=== PATIENT | male | born 1980 | race Caucasian/White ===

== ENCOUNTER 2019-04-04 14:03 | Outpatient (CLI) | payer OTHER ==
--- NOTE | 2019-04-04 16:45 | ULT ---
BILATERAL RENAL ULTRASOUND: Date: 04/04/19 HISTORY: Chronic renal disease. FINDINGS: Real-time imaging of the right and left kidneys performed. The right kidney measures 12.6 cm and left kidney measures 11.4 cm. There is some minimal prominence to the left extrarenal pelvis. An echogeni c area within the renal pelvis is seen. Reportedly, the patient has a left-sided nephrostomy tube. Th e bladder region appears unremarkable. There is no significant post-void residual. IMPRESSION: 1. Mild cortical thinning to both kidneys. 2. Slight prominence to the left renal pelvis with what appears to be partial visualization of a nep hrostomy tube or stent. POS: TPC
== END 2019-04-04 14:04 | disposition home or self-care (01) ==
LOC: ULT 14:03
PROVIDERS: ATTEND Internal Medicine Nephrology
DX: N18.3 Chronic kidney disease, stage 3 (moderate) (principal)
CPT/HCPCS: 36415; 76770; 80048

== ENCOUNTER 2019-04-07 02:43 | Inpatient (IN) | payer MEDICAID, OTHER ==
[2019-04-07] MEDS ORDERED: Morphine 4 MG/ML VIAL ONE (03:33)
[2019-04-07] MEDS ORDERED: Acetaminophen 325 MG TAB PO PRN (04:33)
[2019-04-07] MEDS ORDERED: Ondansetron ODT 4 MG TAB PO PRN (04:33)
[2019-04-07] MEDS ORDERED: Morphine 4 MG/ML VIAL SLOW IVP PRN (04:40)
--- NOTE | 2019-04-07 05:11 | PDOC.EVN ---
Event Note - Event Note Event Note: [id number] HP
[2019-04-07 05:34] LABS: #Basophils 0.1 thou/uL (0.0-0.2); #Eosinphils 0.5 thou/uL (0.0-0.7); #Lymphocytes 1.3 thou/uL (1.20-3.40); #Neutrophils 13.7 thou/uL (1.40-6.50); %Basophils 0.4 % (0.0-1.0); %Eosinophils 3.1 % (0.0-10.0); %Lymphocytes 7.4 % (21.0-51.0); %Monocytes 11.4 % (0.0-10.0); %Neutrophils 77.7 % (42.0-75.0); Mean Corpuscular HGB CONC 33.9 g/dL (32.0-36.0); Mean Corpuscular Hemoglobin 28.2 pg (27.0-31.0); Mean Corpuscular Volume 83.3 fL (78.0-98.0); Mean Platelet Volume 7.6 fL (7.4-10.4); Platelet Count 214 thou/uL (130-400); RBC Distribution Width 14.9 % (11.5-14.5); Red Blood Cell (RBC) Count 5.33 mill/uL (4.70-6.10); White Blood Cell (WBC) Count 17.6 thou/uL (4.8-10.8)
[2019-04-07 05:46] LABS: Anion Gap 12 mmol/L (10-20); BUN (Urea Nitrogen) 16 mg/dL (8.9-20.6); Calc. Creatinine Clearance 0 mL/min (70-130); Calcium 8.8 mg/dL (7.8-10.44); Carbon Dioxide 24 mmol/L (22-29); Chloride 104 mmol/L (98-107); Estimated GFR-MDRD 76; Glucose 112 mg/dL (70-105); Potassium 3.8 mmol/L (3.5-5.1); Sodium 136 mmol/L (136-145)
[2019-04-07] MEDS ORDERED: Cefepime 1 GM in Sodium Chloride 0.9% 100 ML IVPB SCH (06:00)
--- NOTE | 2019-04-07 06:33 | HP ---
CHIEF COMPLAINT: Left flank pain and fever. HISTORY OF PRESENT ILLNESS: Mr. Cooley is a 39-year-old male with past medical history of kidney stone, nephrostomy tube placed back in October 2018 in [place], is being transferred from an outside emergency room after he presented with left flank pain and fever. I requested to transfer the patient to [facility] for urology consultation. The patient had a fever of 101. He had left flank pain. Imaging studies showed that the nephrostomy tube is in place. ED consulted with Urology, was advised to admit the patient and start the patient on IV medical treatment and antibiotics. PAST MEDICAL HISTORY: Kidney stones. PAST SURGICAL HISTORY: 1. Nephrostomy tube. 2. Spine surgery. 3. Cholecystectomy. SOCIAL HISTORY: He smokes one pack a day. He drinks alcohol. Denies other drug use. FAMILY HISTORY: Reviewed and noncontributory. ALLERGIES: LISTED IN THE CHART. HOME MEDICATIONS: Please see home medication reconciliation form for updated medications. REVIEW OF SYSTEMS: Review of 14 systems negative except what is mentioned in the history of present illness. PHYSICAL EXAMINATION: VITAL SIGNS: Temperature 101, heart rate 110, respiratory rate is 14, blood pressure is 140/80. HEAD AND NECK: Normocephalic, atraumatic. NECK: Supple. No JVD. CHEST: Fair bilateral air entry. HEART: S1, S2, regular, tachycardic. ABDOMEN: Soft with left flank tenderness. Bowel sounds present. NEUROLOGIC: Awake, alert, oriented x3. PSYCHIATRIC: Normal mood. EXTREMITIES: No clubbing or cyanosis. LABORATORY DATA: Labs ordered. The results are pending at the time of dictation. IMAGING STUDIES: Imaging studies were done, it was reported that the nephrostomy tube is in place. ASSESSMENT AND PLAN: 1. Sepsis. 2. Kidney stone/infection. 3. Left flank pain. PLAN: 1. Admit. 2. Septic workup including cultures and urine cultures. 3. IV antibiotic. 4. Urology was consulted by the ED for evaluation and further management. 5. Pain management. 6. Reconcile home medications. 7. DVT prophylaxis, early ambulation. 8. Expected length of stay is 2 midnights or more. Job ID: [id number]
[2019-04-07] MEDS: HYDROcodone/Acetaminophen 10/325 mg Tablet PO PRN ×2 (09:25→20:47)
[2019-04-07] MEDS: Sodium Chloride 0.9% 1,000 ML IV SCH ×3 (09:30→20:33)
[2019-04-07 09:44] LABS: Bacteria/HPF None Seen HPF (None Seen); Bilirubin Negative (Negative); Blood, Urine Negative (Negative); Clarity Clear (Clear); Glucose, Urine (Dipstick) Normal (Negative); Leukocyte 75 Leu/uL (Negative); Nitrite Negative (Negative); Protein, Urine (Dipstick) Negative (Neg-Trace); RBC/HPF 0-3 HPF (0-3); Squamous Epithelial 0-3 HPF (0-3); Urobilinogen Normal mg/dL (Less than 2)
[2019-04-07 09:47] VITALS: BMI 28.1
[2019-04-07] MEDS ORDERED: FLU VACC QS2019-20(6MOS UP)/PF 60 MCG/0.5 ML SYRINGE IM ONE (10:00)
[2019-04-07] MEDS: Cefepime 1 GM in Sodium Chloride 0.9% 100 ML IVPB SCH ×2 (10:31→17:16)
[2019-04-07] MEDS ORDERED: Varenicline Tartrate 0.5 MG TAB PO SCH (11:15)
--- NOTE | 2019-04-07 11:51 | PRG ---
DATE OF SERVICE: 04/07/2019 SUBJECTIVE: The patient is seen and examined at bedside. He complains about the flank pain, which is rated approximately at 4 on a scale from 1 to 10. He does not have much nausea. No vomiting. OBJECTIVE: VITAL SIGNS: Blood pressure is 127/78, pulse is 115, temperature is 100, maximal temperature is 100, respiratory rate is 18 and pulse oximetry 94% on room air. HEENT: Head, atraumatic and normocephalic. Eyes, PERRLA, sclerae are nonicteric. Oral mucosa is moist. NECK: Supple. LUNGS: Clear. HEART: S1, S2. Tachycardic. No S3. No S4. ABDOMEN: Soft. The left flank and left lumbar area are tender to touch. There is a urostomy tube in place. Bowel sounds are present. EXTREMITIES: No clubbing, cyanosis, or edema. NEUROLOGIC: He is alert and oriented x4. There is no any motor deficits. IMPRESSION: 1. Sepsis. 2. Kidney stone/infection. PLAN: Continue cefepime. Obtain CT of the abdomen and pelvis with and without contrast. Urologist is consulted. Continue pain management with opioids and continue IV fluids. Job ID: [id number]
--- NOTE | 2019-04-07 16:39 | RAD ---
Exam: Abdomen one view: COMPARISON: No recent comparisons. HISTORY: Left-sided percutaneous nephrostomy catheter. Approximately 0.9 x 1.2 cm diameter left ureteral calcu beltran overlying the left L4 transverse process region. IMPRESSION: Left percutaneous nephrostomy catheter. Large left ureteral calculus.
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
[2019-04-07] MEDS: Varenicline Tartrate 0.5 MG TAB PO SCH (20:33)
[2019-04-08] MEDS: Cefepime 1 GM in Sodium Chloride 0.9% 100 ML IVPB SCH ×4 (00:14→23:40)
[2019-04-08 05:40] LABS: Anion Gap 11 mmol/L (10-20); BUN (Urea Nitrogen) 12 mg/dL (8.9-20.6); Calc. Creatinine Clearance 169 mL/min (70-130); Calcium 9.2 mg/dL (7.8-10.44); Carbon Dioxide 24 mmol/L (22-29); Chloride 106 mmol/L (98-107); Estimated GFR-MDRD 88; Glucose 97 mg/dL (70-105); Potassium 3.9 mmol/L (3.5-5.1); Sodium 137 mmol/L (136-145)
[2019-04-08 05:54] LABS: Band 2 % (5-11); Eosinophils 9 % (0-10); Hemoglobin 14.6 g/dL (14.0-18.0); Lymphocytes 19 % (21-51); MDiff Complete? YES; Mean Corpuscular HGB CONC 34.5 g/dL (32.0-36.0); Mean Corpuscular Hemoglobin 28.2 pg (27.0-31.0); Mean Corpuscular Volume 81.6 fL (78.0-98.0); Mean Platelet Volume 7.7 fL (7.4-10.4); Monocytes 13 % (0-10); Neutrophil 57 % (42-75); Platelet Count 202 thou/uL (130-400); RBC Distribution Width 14.5 % (11.5-14.5); Red Blood Cell (RBC) Count 5.19 mill/uL (4.70-6.10); White Blood Cell (WBC) Count 12.9 thou/uL (4.8-10.8)
[2019-04-08] MEDS: Sodium Chloride 0.9% 1,000 ML IV SCH (07:02)
[2019-04-08] MEDS: Varenicline Tartrate 0.5 MG TAB PO SCH ×2 (09:21→20:18)
--- NOTE | 2019-04-08 11:17 | PRG ---
DATE OF SERVICE: 04/08/2019 SUBJECTIVE: The patient is seen and examined at the bedside. His pain is under better control. He rates it at 1 or 2 on a scale of 1 to 10. He is tolerating food. OBJECTIVE: VITAL SIGNS: Blood pressure is 124/71, pulse is 102, temperature is 98.8, maximal temperature is 100, respiratory rate is 20, and O2 saturation is 95% on room air. HEENT: His head is atraumatic, normocephalic. Eyes are PERRLA. Sclerae are nonicteric. Oral mucosa is moist. NECK: Supple. LUNGS: Clear. HEART: S1 and S2. Tachycardic. No S3. No S4. ABDOMEN: Soft, nontender, and nondistended. Left flank area shows nephrostomy tube in place, which is less sensitive than what it was yesterday. NEUROLOGICAL: He is alert and oriented x4. There is no any motor or sensory deficits. LABORATORY DATA: Labs showed white count of 12.9, hemoglobin 14.6, hematocrit 42.4, and platelet count is 202,000. Normal chemistry. Microbiology, nothing is posted. IMAGING DATA: X-ray of the abdomen done yesterday showed left percutaneous nephrostomy catheter and large left ureteral calculus, which is measured at 0.9 x 1.2 cm at the level of left L4 transverse process region. IMPRESSION: 1. Sepsis. 2. Left ureteral stone. 3. Indwelling percutaneous nephrostomy tube and left flank pain, status post nephrostomy tube valve obstruction, status post removal of the obstruction. 4. Urinary tract infection. I do not see that the urine culture was done. DISCUSSION: The patient was seen by Dr. Sky for Urology evaluation. His nephrostomy tube valve was obstructed and apparently, it was unplugged by urologist. The patient's pain is under control. We will have a behavioral health case manager to work on his insurance to have appropriate after discharge Followup with this patient, who wants to establish care with local urologist. For now, we will continue IV antibiotic, which is cefepime. I do not see cultures on his urine. Blood cultures done at the time of admission. We will have to treat him empirically in situation like that. We will stop his IV fluids. He is taking fluids orally without any problems. Job ID: [id number]
[2019-04-09] MEDS: Varenicline Tartrate 0.5 MG TAB PO SCH (08:42)
[2019-04-09] MEDS: Cefepime 1 GM in Sodium Chloride 0.9% 100 ML IVPB SCH ×2 (09:26→15:30)
--- NOTE | 2019-04-09 13:07 | PDOC.HOSPP ---
- Subjective Encounter Date: 04/09/19 Encounter Time: 10:15 Subjective: no pain, feels better - Objective Vital Signs & Weight: Vital Signs (12 hours) Temp Pulse Resp BP BP Pulse Ox 04/09/19 12:07 98.5 F 88 16 116/73 96 04/09/19 12:00 98.5 F 88 16 116/73 96 04/09/19 07:58 98.6 F 86 16 133/76 95 04/09/19 03:41 98.3 F 81 16 112/70 94 L Weight Weight 250 lb I&O: 04/08/19 04/09/19 04/10/19 06:59 06:59 06:59 Intake Total 3320 2700 Output Total 6910 2675 850 Balance -3590 25 -850 Result Diagrams: 04/08/19 04:14 04/08/19 04:14 Hospitalist ROS - Medication Medications: Active Medications Generic Name Dose Route Start Last Admin Trade Name Freq PRN Reason Stop Dose Admin Hydrocodone Bitart/Acetaminophen 1 tab 04/07/19 04:33 04/07/19 20:47 [place] 10/325 PO 1 tab Q4H PRN Administration Moderate Pain (4-6) Cefepime HCl 1 gm/ Sodium 100 mls @ 200 mls/hr 04/07/19 08:00 04/09/19 09:26 Chloride IVPB 100 mls 0800,1600,2359 ZAMZAM Administration Sodium Chloride 10 ml 04/07/19 09:00 04/09/19 09:26 Flush - Normal Saline IVF 10 ml Q12HR ZAMZAM Administration Sodium Chloride 10 ml 04/07/19 08:01 04/08/19 15:50 Flush - Normal Saline IVF 10 ml PRN PRN Administration Saline Flush Varenicline 0.5 mg 04/07/19 21:00 04/09/19 08:42 Chantix PO 0.5 mg BID ZAMZAM Administration - Exam General Appearance: NAD, awake alert Eye: PERRL, anicteric sclera ENT: no oropharyngeal lesions, moist mucosa Neck: supple, no JVD Heart: RRR, no murmur Respiratory: no wheezes, no rales Gastrointestinal: soft, non-tender, non-distended, normal bowel sounds Gastrointestinal - other findings: percut nephrostomy tube draining urine left side Extremities: no cyanosis, no edema Neurological: cranial nerve grossly intact, no focal deficits Psychiatric: normal affect, A&O x 3 Hosp A/P (1) Ureteral calculus Code(s): N20.1 - CALCULUS OF URETER Status: Acute (2) h/o percutaneous nephrostomy tube left Status: Chronic Plan: got it placed in October at [facility] in [place] (3) Tobacco abuse Code(s): Z72.0 - TOBACCO USE Status: Chronic - Plan on cefepime, morphine prn, chantix for smoking cessation hemostable awaiting insurance approval for further procedures on left ureteral calculi ( 1.2cms) at L4 level
[2019-04-09 15:28] VITALS: BP 146/70; TEMP 98.1
--- NOTE | 2019-04-10 10:13 | PQF ---
[employer] Surgery Teacher Crystal Reports Winform ViewerATRIUM HEALTH HUNTERSVILLESHAUNNA GARCIA GENE DENG MD [id number] [facility] 3317 [id number] CLINICAL DOCUMENTATION CLARIFICATION FORM: POST DISCHARGE Addendum to original discharge summary date: ____ Late entry note date: __ DATE: 04/10/2019 ATTN:GENE DENG MD Please exercise your independent, professional judgment in responding to the clarification form. Clinical indicators are provided on the bottom of this form for your review Please check appropriate box(s): [ x ] Sepsis due to Nephrostomy tube [ ] Sepsis not due to Nephrostomy tube [ x ] Other diagnosis klebsiella bacteremia 2/2 blood cultures drawn on 2018 at [facility]. [ ] Unable to determine CLINICAL INDICATORS - SIGNS / SYMPTOMS / LABS - He had a nephrostomy tube- ED record, 04/07, Raj Rhoades MD - Sepsis- H&P, 04/07, Elie Delgadillo MD - Kidney stone/infection-H&P, 04/07, Elie Delgadillo MD - Ureteral calculus-Hospital PN, 04/09, GENE DENG MD RISK FACTORS - PSH: left percutaneous nephrostomy tube-Consult, 04/07, Jose Daniel Zuniga MD - UTI-Consult report, 04/07, Jose Daniel Zuniga MD TREATMENT: -Cefepime.IV- MAR, 04/07 (This form is maintained as a part of the permanent medical record) 2014 [email or web address]. All Rights Reserved Pat Santillan [not provided] [not provided] MTDD
--- NOTE | 2019-04-10 14:30 | DIS ---
DATE OF ADMISSION: 04/07/2019 DATE OF DISCHARGE: 04/09/2019 DISCHARGE DISPOSITION: To home. PRIMARY DISCHARGE DIAGNOSES: Left ureteral stent with history of percutaneous nephrostomy tube placed in October of 2018 at [facility], tobacco abuse, and sepsis due to Klebsiella pneumonia. PROCEDURES DONE DURING HOSPITALIZATION: Plain abdominal x-ray done showed 0.9 x 1.2 cm left ureteral calculus overlying the left L4 transverse process. Blood cultures x2 obtained on 04/06/2019 grew Klebsiella pneumoniae species sensitive to all antibiotics. Had a white count of 17 on the day of admission. BUN 12 and creatinine 0.9. INPATIENT CONSULT: Dr. Jose Daniel Zuniga for Urology. DISCHARGE MEDICATIONS: 1. Ciprofloxacin 500 mg p.o. twice daily for a total of 7 days. 2. Chantix as before 0.5 mg twice daily. ALLERGIES: TO QUETIAPINE. DISCHARGE PLAN: The patient is advised to follow up with a new primary care physician in the area, who accepts his insurance in 1 week. He also needs to either followup at [facility], where his insurance is accepted and see a urologist, whom he saw in October of this year with placement of nephrostomy tube or local urologist in the area will accept his insurance. BRIEF COURSE DURING HOSPITALIZATION: The patient initially came in with complaints of left flank pain and fever. He has had history of left ureterolithiasis and had a nephrostomy tube placed in October of 2018 at [facility]. The patient did not follow up for further workup on the stone. He had decreased urine output from his left nephrostomy tube. The patient also had blood culture that was taken on the that grew Klebsiella pneumoniae, 2/2 sets. He was evaluated by Dr. Jose Daniel Zuniga for Urology here. His nephrostomy tube existing valve was flushed. The patient has had good urine output from the nephrostomy tube and it is working well now. Case Management consultation was obtained to see if his insurance would allow for further urologic procedures as outpatient. Apparently, his insurance would not allow Dr. Jose Daniel Cruz to do further procedures including lithotripsy/extraction of stone. In view of this, he was counseled and advised to follow up with his urologist at [facility], where he had a nephrostomy tube placed. He has a 1 cm stone, which likely is not going to pass. He has had this for last 6 months or so now. Local area urologist's name and phone numbers were provided to him to find out if his insurance is acceptable to them to have further workup on his stone. He has remained otherwise hemodynamically stable. He is placed on ciprofloxacin based on cultures. Please add bacteremia with Klebsiella and the patient has remained hemodynamically stable with normal temperatures from 14. He has had initial temperature of 100 on arrival here. Please note, I have seen and examined the patient on the day of discharge. Job ID: [id number]
== END 2019-04-09 16:24 | disposition home or self-care (01) | DRG 698 ==
LOC: ERS 02:43 → OBSVTOIN 04:25 → SJJU 04:25
PROVIDERS: ADMIT Internal Medicine; ATTEND Internal Medicine
PROC: 0T25X0Z Change Drainage Device in Kidney, External Approach (ICD-10-PCS; principal; 2019-04-07)
DX: N99.521 Infection of incontinent external stoma of urinary tract (principal); A41.89 Other specified sepsis; N20.1 Calculus of ureter; N39.0 Urinary tract infection, site not specified; F32.9 Major depressive disorder, single episode, unspecified; Y83.8 Other surgical procedures as the cause of abnormal reaction of the patient, or of later complication, without mention of misadventure at the time of the procedure; B96.1 Klebsiella pneumoniae [K. pneumoniae] as the cause of diseases classified elsewhere; F17.210 Nicotine dependence, cigarettes, uncomplicated; Z90.49 Acquired absence of other specified parts of digestive tract
CPT/HCPCS: 36415; 74018; 80048; 81001; 85025; 90471; 90686; 90732; 96361; 96374; G0008; G0009; J0692; J2270; J3490

== ENCOUNTER 2019-05-16 13:50 | Outpatient (CLI) | payer MEDICAID ==
[2019-05-16 15:15] LABS: Hemoglobin 15.2 g/dL (14.0-18.0); Mean Corpuscular HGB CONC 33.6 g/dL (32.0-36.0); Mean Corpuscular Hemoglobin 27.6 pg (27.0-31.0); Mean Corpuscular Volume 82.2 fL (78.0-98.0); Mean Platelet Volume 6.9 fL (7.4-10.4); Platelet Count 280 thou/uL (130-400); Red Blood Cell (RBC) Count 5.51 mill/uL (4.70-6.10); White Blood Cell (WBC) Count 16.6 thou/uL (4.8-10.8)
[2019-05-16 15:22] LABS: Bacteria/HPF None Seen HPF (None Seen); Bilirubin Negative (Negative); Blood, Urine Negative (Negative); Clarity Clear (Clear); Glucose, Urine (Dipstick) Normal (Negative); Leukocyte 25 Leu/uL (Negative); Nitrite Negative (Negative); Protein, Urine (Dipstick) 10 mg/dL (Neg-Trace); RBC/HPF 0-3 HPF (0-3); Squamous Epithelial None Seen HPF (0-3); Urobilinogen Normal mg/dL (Less than 2)
[2019-05-16 15:36] LABS: Anion Gap 14 mmol/L (10-20); BUN (Urea Nitrogen) 14 mg/dL (8.9-20.6); Calc. Creatinine Clearance 0 mL/min (70-130); Calcium 9.8 mg/dL (7.8-10.44); Carbon Dioxide 26 mmol/L (22-29); Chloride 103 mmol/L (98-107); Estimated GFR-MDRD 63; Glucose 103 mg/dL (70-105); Potassium 4.3 mmol/L (3.5-5.1); Sodium 139 mmol/L (136-145)
== END 2019-05-16 13:51 | disposition home or self-care (01) ==
LOC: LABBT 13:50
PROVIDERS: ATTEND Urology
DX: Z01.812 Encounter for preprocedural laboratory examination (principal); N20.0 Calculus of kidney
CPT/HCPCS: 80048; 81001; 85027; 87086

== ENCOUNTER 2019-05-21 07:17 | Day surgery (SDC) | payer MEDICAID ==
[2019-05-16 14:20] VITALS: BMI 29.4
[2019-05-21] MEDS ORDERED: Fentanyl 100 MCG/2 ML VIAL ONE ×2 (08:24→11:09)
[2019-05-21] MEDS ORDERED: Iothalamate Meglumine 60% 50 ML VIAL FS ONE (08:24)
[2019-05-21] MEDS ORDERED: Midazolam HCl 2 mg/2 ml Vial ONE (08:24)
[2019-05-21] MEDS ORDERED: Lidocaine 1% PF 5 ML VIAL ONE (09:35)
[2019-05-21] MEDS ORDERED: PROPOFOL 200 MG/20 ML VIAL ONE (09:35)
[2019-05-21] MEDS ORDERED: Dexamethasone 20 MG/5 ML VIAL ONE (09:35)
[2019-05-21] MEDS ORDERED: Ondansetron PF 4 MG/2 ML Vial ONE (09:35)
[2019-05-21] MEDS ORDERED: Morphine 4 MG/ML VIAL ONE (09:37)
[2019-05-21] MEDS ORDERED: Morphine 2 MG/ML SYRINGE ONE (09:37)
--- NOTE | 2019-05-21 11:11 | OP ---
DATE OF PROCEDURE: 05/21/2019 PREOPERATIVE DIAGNOSIS: Left ureteral stone. POSTOPERATIVE DIAGNOSIS: Left ureteral stone. PROCEDURES PERFORMED: Left ureteroscopy with laser lithotripsy, basket extraction of stone, 6 x 28 double-J ureteral stent placement, antegrade nephrostogram through existing access, removal of nephrostomy tube. ANESTHESIA: General. COMPLICATIONS: None. ESTIMATED BLOOD LOSS: Minimal. SPECIMEN: Stone fragments. DESCRIPTION OF PROCEDURE: After informed consent, the patient was taken to the operating room, transferred to the table under his own power. Anesthesia was established. A time-out was performed showing the correct patient, site, and procedure. Preoperative antibiotics were administered. He was prepped and draped in the lithotomy position. I then performed an antegrade nephrostogram showing good filling of the renal pelvis and ureter down to the level of the stone seen under fluoroscopy with no contrast passing the stone. I then passed the semi-rigid ureteroscope through the urethra into the bladder and the left ureteral orifice was cannulated with a wire. This was passed up to the level of the stone. However, I was unable to pass the wire beyond this. I then removed the scope leaving the wire in place. The scope was then reinserted alongside of the wire until the stone was encountered in the mid ureter. A retrograde pyelogram was performed showing high-grade obstruction with no contrast passing the stone. The 365 micron laser fiber was utilized to dust the stone into small pieces. The Nitinol basket was used to retrieve all clinically significant stone fragments. The scope was then passed up to the proximal ureter noting no clinically significant stone fragments remaining and no further abnormalities. I then entered the wire, which was passed up to the level of the renal pelvis and performed a completion retrograde pyelogram. The scope was then carefully withdrawn. The bladder was drained and then a 6 x 28 double-J ureteral stent was passed over the wire with a curl in the kidney and curl in the bladder under fluoroscopic guidance. The nephrostomy tube was then removed, ensuring that the stent remained in place. The nephrostomy site was dressed with a gauze and Tegaderm. At this point, the case was completed. The patient was brought down from the lithotomy position, awoken from anesthesia, transferred back to his hospital bed and taken to PACU in stable condition, where he will discharge to home upon recovery. Job ID: [id number]
[2019-05-21] MEDS ORDERED: Oxybutynin 5 MG TAB ONE (11:21)
== END 2019-05-21 12:30 | disposition home or self-care (01) ==
LOC: SDC 07:17
PROVIDERS: ATTEND Urology
PROC: 0TP5X0Z Removal of Drainage Device from Kidney, External Approach (ICD-10-PCS; principal; 2019-05-21)
PROC: BT111ZZ Fluoroscopy of Right Kidney using Low Osmolar Contrast (ICD-10-PCS; principal; 2019-05-21)
PROC: 0TC78ZZ Extirpation of Matter from Left Ureter, Via Natural or Artificial Opening Endoscopic (ICD-10-PCS; principal; 2019-05-21)
DX: N20.1 Calculus of ureter (principal); F41.9 Anxiety disorder, unspecified; G89.29 Other chronic pain; Z87.891 Personal history of nicotine dependence; Z88.8 Allergy status to other drugs, medicaments and biological substances
CPT/HCPCS: 76000; 82365; 88300; J0690; J1100; J2001; J2250; J2270; J2405; J2704; J3010

== ENCOUNTER 2019-05-22 21:32 | Inpatient (IN) | payer MEDICAID ==
[2019-05-22] MEDS ORDERED: Vancomycin 1.5 GRAM/300 ML BAG 1.5 GM in Premix Bag 1 BAG IVPB SCH (23:15)
[2019-05-22] MEDS ORDERED: Norepinephrine 8 MG/0.9% NS 250 ML ONE (23:26)
[2019-05-22] MEDS ORDERED: GENTAMICIN SULFATE IVPB SCH (23:30)
[2019-05-22] MEDS ORDERED: ADMIXTURE FEE IVPB SCH (23:30)
[2019-05-22] MEDS ORDERED: SODIUM CHLORIDE IVPB SCH (23:30)
[2019-05-23] MEDS ORDERED: HYDROcodone/Acetaminophen 5/325 mg Tablet PO PRN (00:52)
[2019-05-23] MEDS ORDERED: Norepinephrine 8 MG/0.9% NS 250 ML IVPB SCH (00:52)
[2019-05-23] MEDS ORDERED: Ondansetron ODT 4 MG TAB PO PRN (00:52)
[2019-05-23] MEDS ORDERED: Ketorolac Tromethamine 30 MG/ML VIAL IVP SCH (01:00)
[2019-05-23] MEDS: Sodium Chloride 0.9% 1,000 ML IV SCH ×2 (01:18→08:42)
[2019-05-23] MEDS: Ondansetron PF 4 MG/2 ML Vial IVP PRN (03:24)
[2019-05-23 04:30] LABS: Anion Gap 9 mmol/L (10-20); BUN (Urea Nitrogen) 15 mg/dL (8.9-20.6); Calc. Creatinine Clearance 160 mL/min (70-130); Calcium 7.9 mg/dL (7.8-10.44); Carbon Dioxide 23 mmol/L (22-29); Chloride 109 mmol/L (98-107); Estimated GFR-MDRD 72; Glucose 103 mg/dL (70-105); Potassium 3.6 mmol/L (3.5-5.1); Sodium 137 mmol/L (136-145)
[2019-05-23 04:49] LABS: Band 12 % (5-11); Eosinophils 1 % (0-10); Hemoglobin 13.2 g/dL (14.0-18.0); Lymphocytes 7 % (21-51); MDiff Complete? YES; Mean Corpuscular HGB CONC 34.1 g/dL (32.0-36.0); Mean Corpuscular Hemoglobin 27.8 pg (27.0-31.0); Mean Corpuscular Volume 81.5 fL (78.0-98.0); Mean Platelet Volume 7.1 fL (7.4-10.4); Monocytes 7 % (0-10); Neutrophil 73 % (42-75); Platelet Count 192 thou/uL (130-400); RBC Distribution Width 13.8 % (11.5-14.5); Red Blood Cell (RBC) Count 4.73 mill/uL (4.70-6.10); White Blood Cell (WBC) Count 13.2 thou/uL (4.8-10.8)
[2019-05-23] MEDS: Ketorolac Tromethamine 30 MG/ML VIAL IVP SCH ×3 (05:47→17:22)
--- NOTE | 2019-05-23 08:24 | RAD ---
CHEST 1 VIEW: Date: 05/23/19 INDICATION: History of central line insertion. COMPARISON: Prior exam dated 05/23/19 at 12:00 a.m.. IMPRESSION: Central line tip is now present in the region of the proximal right atrium. Cardiomegaly and pulmonar y vascular congestion persist. No pleural effusion or pneumothorax is noted. POS: BH
--- NOTE | 2019-05-23 08:27 | RAD ---
SINGLE VIEW CHEST: Date: 05/22/19 INDICATION: Central line placement and chest pain. COMPARISON: Prior chest radiograph dated 12/29/02. FINDINGS: There is cardiomegaly and pulmonary vascular congestion. There is a right IJ central venous catheter projecting into the right atrium. Withdrawal of approximately 8.0 cm would put the catheter at the ca voatrial junction. No pleural effusion or pneumothorax evident. IMPRESSION: 1. Cardiomegaly and pulmonary vascular congestion. 2. Right IJ central venous catheter as above. POS: BH
[2019-05-23] MEDS ORDERED: Lactated Ringer's 1,000 ML IV SCH (08:45)
[2019-05-23] MEDS: Vancomycin HCl 1.25 GM in Sodium Chloride 0.9% 250 ML 250 ML IVPB SCH ×2 (10:02→16:18)
[2019-05-23] MEDS: Famotidine 20 MG TAB PO SCH ×2 (10:06→20:31)
[2019-05-23] MEDS: NS 0.9% w/ 20 MEQ KCL 1,000 ML/1,000 ML BAG IV SCH ×2 (10:08→17:22)
[2019-05-23] MEDS: cefTRIAXone\\ROCEPHIN 2 GM in Sodium Chloride 0.9% 100 ML IVPB SCH (10:23)
[2019-05-23] MEDS ORDERED: Oxymetazoline HCl 0.05% (30 ML BOT) NS SCH (11:30)
--- NOTE | 2019-05-23 11:30 | ULT ---
RENAL ULTRASOUND HISTORY: Sepsis with stones COMPARISON: Prior exam dated April 04, 2019 FINDINGS: Right Kidney: Size: 13.0 x 6.8 x 8 cm. Abnormality: Normal cortical echotexture. No hydronephrosis. Left Kidney: Size: 11.0 x 7.0 x 5.5 cm. Abnormality: Normal cortical echotexture. No hydronephrosis Urinary bladder: Prevoid bladder volume was 212.3 cc. Postvoid bladder volume was 12.1 cc. Total void ed volume was 200.2 cc. There are bilateral ureteral jets. IMPRESSION: No hydronephrosis.
--- NOTE | 2019-05-23 11:53 | PDOC.HOSPP ---
- Subjective Encounter Date: 05/23/19 Encounter Time: 11:40 Subjective: Patient reports feeling better today and states that his pain is better controlled. No N/V/D/C. No fever or chills. No CP, SOB. - Objective Vital Signs & Weight: Vital Signs (12 hours) Temp Pulse Resp Pulse Ox 05/23/19 08:00 99.0 F 96 05/23/19 03:00 98.0 F 05/23/19 01:25 100 05/23/19 01:00 98.2 F 05/23/19 00:52 98.2 F 99 18 Weight Weight 283 lb 15.286 oz Most Recent Monitor Data Heart Rate from ECG 111 NIBP 125/71 NIBP BP-Mean 89 Respiration from ECG 25 SpO2 96 I&O: 05/22/19 05/23/19 05/24/19 06:59 06:59 06:59 Intake Total 745.8 250 Output Total 800 600 Balance -54.2 -350 Result Diagrams: 05/23/19 03:42 05/23/19 03:42 Hospitalist ROS - Medication Medications: Active Medications Generic Name Dose Route Start Last Admin Trade Name Freq PRN Reason Stop Dose Admin Famotidine 20 mg 05/23/19 09:00 05/23/19 10:06 Pepcid PO 20 mg BID ZAMZAM Administration Ceftriaxone Sodium 2 gm/ 100 mls @ 200 mls/hr 05/23/19 09:00 05/23/19 10:23 Sodium Chloride IVPB 100 mls Q24HR ZAMZAM Administration Vancomycin HCl 1.25 gm/ Sodium 250 mls @ 166.667 mls/hr 05/23/19 08:00 10:02 Chloride IVPB 250 mls 0800,1600,2359 ZAMZAM Administration Potassium Chloride/Sodium Chloride 1,000 ml in 1,000 mls @ 125 mls/hr 08:45 05/23/19 10:08 Ns 0.9% W/ 20 Meq Kcl IV 1,000 mls .Q8H ZAMZAM Administration Ketorolac Tromethamine 30 mg 05/23/19 06:00 05/23/19 05:47 Toradol IVP 05/28/19 00:01 30 mg Q6HR ZAMZAM Administration Ondansetron HCl 4 mg 05/23/19 00:52 05/23/19 03:24 Zofran IVP 4 mg Q6H PRN Administration Nausea/Vomiting Sodium Chloride 10 ml 05/23/19 09:00 05/23/19 10:23 Flush - Normal Saline IVF 10 ml Q12HR ZAMZAM Administration - Exam ENT: normocephalic atraumatic, no oropharyngeal lesions, moist mucosa Neck: supple, no JVD Heart: no murmur, no gallops, normal peripheral pulses Heart - other findings: tachycardia present Respiratory: CTAB, no wheezes, normal chest expansion Gastrointestinal: soft, non-tender, non-distended, normal bowel sounds Hosp A/P (1) Sepsis Code(s): A41.9 - SEPSIS, UNSPECIFIED ORGANISM Status: Acute Qualifiers: Sepsis type: sepsis due to unspecified organism Sepsis acute organ dysfunction status: with acute organ dysfunction Severe sepsis acute organ dysfunction type: unspecified Severe sepsis shock status: with septic shock Qualified Code(s): A41.9 - Sepsis, unspecified organism; R65.21 - Severe sepsis with septic shock Plan: Had septic shock on presentation and was on levophed overnight Has been off pressors since this morning Still has 12% bands and tachycardia consistent with sepsis related to his UTI Continue IV abx Urology on board US kidneys without any obstructive uropathy Continue IV fluids Will obtain urine drug screen to evaluate for alternative causes for persistent tachycardia High risk due to risk of recurrent septic shock (2) UTI (urinary tract infection) Status: Acute Qualifiers: Urinary tract infection type: site unspecified Hematuria presence: without hematuria Qualified Code(s): N39.0 - Urinary tract infection, site not specified Plan: As above
[2019-05-23] MEDS: Acetaminophen 500 MG TAB PO PRN (12:21)
--- NOTE | 2019-05-23 14:35 | CON ---
DATE OF CONSULTATION: 05/23/2019 CONSULTING: Critical Care Team. REASON FOR CONSULTATION: Urosepsis after urologic surgery. HISTORY OF PRESENT ILLNESS: Mr. Cooley is a 39-year-old white male, who was a patient of Dr. Nael Xiong. The patient has a history of a retained left-sided nephrostomy tube, which apparently has been in place for over 7 months without being changed. The patient developed a stone, presumably from the retained nephrostomy tube. Dr. Xiong removed the left-sided nephrostomy tube and performed a left-sided ureteroscopy and laser lithotripsy due to a left ureteral stone on that side. A ureteral stent was left in place postoperatively. This took place on May 21. The patient was discharged to home afterwards and apparently started feeling bad yesterday and progressed to the point where he began having fevers and chills at home with temperatures over 102. The patient was brought into the emergency room, where he met SIRS criteria for possible pre-sepsis. The patient was admitted to the Critical Care Unit, where I have been consulted for further assistance. On my discussion with the patient, he currently states that he is having some soreness on his left side, but otherwise feels okay. He generally feels a little bit miserable and under the weather and feels fatigued. Otherwise, denies any severe pain or ongoing fevers. He states he feels a little bit better than he did before when he first came in. He is urinating without difficulty, although he does have some urgency and frequency as expected with his ureteral stent. ALLERGIES: QUETIAPINE. HOME MEDICATIONS: 1. Ibuprofen. 2. Flomax. 3. Oxybutynin. 4. Tramadol. 5. . 6. Ciprofloxacin. PAST MEDICAL HISTORY: 1. Nephrolithiasis and kidney stones. 2. Retained nephrostomy tube. 3. Tobacco abuse. PAST SURGICAL HISTORY: 1. Left percutaneous nephrostomy tube placement, which was retained. 2. Self-reported spine surgeries. 3. Laparoscopic cholecystectomy. SOCIAL HISTORY: The patient is a cigarette smoker and is currently trying to quit on Chantix. He denies alcohol abuse or illicit drug use. FAMILY HISTORY: Noncontributory. REVIEW OF SYSTEMS: A 12-point review of systems was reviewed and negative other than what was on the HPI. Specifically, the patient denies any ongoing fevers or hematuria or voiding difficulties. PHYSICAL EXAMINATION: VITAL SIGNS: Temperature 103.3 as of noon, heart rate 119, blood pressure 119/62, respirations 22, saturation 93% on room air. GENERAL: Appears slightly ill, but is answering questions appropriately. Appears stated age, well nourished, well developed. HEENT: Normocephalic and atraumatic. Pupils are symmetric and round. Sclerae are nonicteric. Dry mucous membranes. Trachea midline. CARDIOVASCULAR: Sinus tachycardia. Normal S1 and S2. Symmetric pulses. CHEST: No increased work of breathing. Symmetric expansion of lungs, clear anteriorly. ABDOMEN: Soft, nondistended, mildly tender on the left. CVA tenderness was not checked. No suprapubic tenderness. No obvious hernias. Previously well-healed port sites. GENITOURINARY: No catheter in place. Nonfocal without any lesions. Testes bilaterally descended. EXTREMITIES: No clubbing, cyanosis, or edema. MUSCULOSKELETAL: No joint deformities or joint erythema noted. Full range of motion. NEUROLOGIC: Cranial nerves 2 through 12 grossly intact. No focal or sensory motor deficits identified. SKIN: Warm, dry. No rashes or lesions. Good turgor. The patient feels very warm. LYMPHATICS: No obvious lymphadenopathy in the supraclavicular, cervical, or axillary regions. PSYCHIATRIC: Slightly somnolent, but otherwise oriented x3. Answering questions appropriately. Appropriate mood and affect. LABORATORY DATA: Full set of labs are in the [facility] system, which I have reviewed. Of note, the patient's white count is 13.2, hemoglobin of 13.2. Creatinine is 1.15. Renal ultrasound done today, demonstrates no evidence of hydronephrosis. ASSESSMENT AND PLAN: A 39-year-old white male with systemic inflammatory response syndrome criteria for either pyelonephritis versus early sepsis occurring after recent ureteroscopy. The patient apparently was discharged on Cipro, but is continuing to become extremely sick despite antibiotic coverage. He is currently on Rocephin and vancomycin, which I agree is reasonable. If the patient continues to spike, I would increase ceftriaxone to Zosyn or meropenem for further antibiotic coverage. From my standpoint, the stent appears to be working well as the patient does not have any hydronephrosis. The infection probably came about from a prolonged nephrostomy tube, which had resulted in heavy bacterial colonization of the renal pelvis and there may have been Cipro resistant bacteria there or the patient just becoming sick from the shear burden of the bacterial load despite being on appropriate antibiotic therapy. Nonetheless, there is no need for any surgical intervention at this time. The patient should be treated medically with broad-spectrum antibiotics and supportive care. Should the patient continue to have fevers after approximately 24 to 48 hours, repeat renal ultrasound should be performed to evaluate for renal abscess. Blood culture should be taken if they have not been, although the patient is already on antibiotics. Urine culture is apparently pending. From my standpoint, I will follow along, but at the current moment, there does not seem to be any need or role for Surgical or Urologic intervention at this time. Job ID: [id number]
[2019-05-23 16:01] LABS: Amphetamine Not Detected (NotDetected); Barbiturates Screen Not Detected (NotDetected); Benzodiazepine Screen Not Detected (NotDetected); Cocaine Metabolite Screen Not Detected (NotDetected); Medtox Control Line Valid? VALID (VALID); Medtox Reader # READER 4; Methadone Not Detected (NotDetected); Methamphetamine Not Detected (NotDetected); Opiate Screen Not Detected (NotDetected); Oxycodone Screen Not Detected (NotDetected); Phencyclidine (PCP) Not Detected (NotDetected); THC/Cannabinoid Screen Not Detected (NotDetected); Tricyclic Screen Not Detected (NotDetected)
[2019-05-23] MEDS: Oxymetazoline HCl 0.05% (30 ML BOT) NS SCH ×2 (16:18→20:41)
--- NOTE | 2019-05-23 17:33 | CON ---
DATE OF CONSULTATION: 05/23/2019 HISTORY OF PRESENT ILLNESS: Mr. Cooley is a 39-year-old male, admitted to the critical care unit. I was consulted because of the ICU protocol. There were no records available other that the ER note when I saw him this morning, but these are now available. Apparently, he has a history of retained left- sided nephrostomy tube, which had been in place for quite some time. He developed a stone. He had the tube removed, had a ureteroscopy and laser lithotripsy. Ureteral stent was left in place postoperatively. This was 2 days ago. He went home again feeling bad yesterday because of fever, came to the emergency room subsequently and was admitted. Says he still does not feel good, but he feels better and he fell when he presented. PAST MEDICAL HISTORY: Otherwise, remarkable for back surgery and cholecystectomy. SOCIAL HISTORY: He is a smoker. He is not a daily drinker. Denies drug use. FAMILY HISTORY: Negative for lung disease in early age. REVIEW OF SYSTEMS: Ten points otherwise negative. PHYSICAL EXAMINATION: VITAL SIGNS: I saw him this morning. He was afebrile. Heart rate was in the 90s, respiratory rate was in the teens, and blood pressure 96/59. Pupils are equal. Sclerae are anicteric. NECK: Supple. LUNGS: Clear. HEART: Regular rhythm, S1 and S2 normal. ABDOMEN: Soft and nontender. EXTREMITIES: Without clubbing, cyanosis, or edema. He is 6 feet tall, 283 pounds, and BMI is 38. LABORATORY DATA: Chest x-ray showed no infiltrates. LABORATORY DATA: White count 13.2, hemoglobin 13.2, and platelets 192. Electrolytes are unremarkable. Drug screen was negative. Klebsiella grew out on 2 blood cultures little an over a month ago. IMPRESSION: Clinical finding suggestive of urinary tract sepsis. It does not appear that cultures were done in the emergency department at least based on what I can access in the computer at this time. He appears to be clinically improving. I will be happy to follow the other physicians caring for. CRITICAL CARE TIME: 30 minutes. Job ID: [id number] MTDD
[2019-05-23] MEDS: HYDROcodone/Acetaminophen 5/325 mg Tablet PO PRN (20:39)
[2019-05-24] MEDS: Ketorolac Tromethamine 30 MG/ML VIAL IVP SCH ×3 (00:25→11:10)
[2019-05-24] MEDS: Vancomycin HCl 1.25 GM in Sodium Chloride 0.9% 250 ML 250 ML IVPB SCH (00:25)
[2019-05-24 00:41] LABS: Vancomycin, Trough 10.8 ug/mL
[2019-05-24] MEDS ORDERED: Vancomycin HCl 500 MG in Sodium Chloride 0.9% 100 ML IVPB SCH (01:15)
[2019-05-24 05:01] LABS: #Eosinphils 0.1 thou/uL (0.0-0.7); #Lymphocytes 1.2 thou/uL (1.20-3.40); #Monocytes 1.5 thou/uL (0.11-0.59); #Neutrophils 7.4 thou/uL (1.40-6.50); %Basophils 0.3 % (0.0-1.0); %Eosinophils 0.8 % (0.0-10.0); %Lymphocytes 11.6 % (21.0-51.0); %Monocytes 14.6 % (0.0-10.0); %Neutrophils 72.8 % (42.0-75.0); Hemoglobin 11.6 g/dL (14.0-18.0); Mean Corpuscular HGB CONC 34.3 g/dL (32.0-36.0); Mean Corpuscular Hemoglobin 27.8 pg (27.0-31.0); Mean Corpuscular Volume 81.2 fL (78.0-98.0); Mean Platelet Volume 7.1 fL (7.4-10.4); Platelet Count 161 thou/uL (130-400); RBC Distribution Width 13.6 % (11.5-14.5); Red Blood Cell (RBC) Count 4.15 mill/uL (4.70-6.10); White Blood Cell (WBC) Count 10.2 thou/uL (4.8-10.8)
[2019-05-24 05:23] LABS: ALT (SGPT) 31 U/L (8-55); AST (SGOT) 25 U/L (5-34); Albumin 3.1 g/dL (3.5-5.0); Alkaline Phosphatase 61 U/L (40-110); Anion Gap 8 mmol/L (10-20); BUN (Urea Nitrogen) 11 mg/dL (8.9-20.6); Bilirubin, Total 0.9 mg/dL (0.2-1.2); Calc. Creatinine Clearance 175 mL/min (70-130); Calcium 8.2 mg/dL (7.8-10.44); Carbon Dioxide 21 mmol/L (22-29); Chloride 108 mmol/L (98-107); Estimated GFR-MDRD 79; Globulin 2.7 g/dL (2.4-3.5); Glucose 116 mg/dL (70-105); Potassium 3.5 mmol/L (3.5-5.1); Protein, Total 5.8 g/dL (6.0-8.3); Sodium 133 mmol/L (136-145)
[2019-05-24] MEDS: HYDROcodone/Acetaminophen 5/325 mg Tablet PO PRN (05:48)
[2019-05-24] MEDS: NS 0.9% w/ 20 MEQ KCL 1,000 ML/1,000 ML BAG IV SCH ×3 (05:50→18:23)
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
[2019-05-24] MEDS: Vancomycin HCl 1.75 GM in Sodium Chloride 0.9% 500 ML IVPB SCH ×2 (08:57→16:14)
[2019-05-24] MEDS ORDERED: HYDROcodone/Acetaminophen 5/325 mg Tablet PO PRN (10:33)
[2019-05-24] MEDS: cefTRIAXone\\ROCEPHIN 2 GM in Sodium Chloride 0.9% 100 ML IVPB SCH (11:07)
[2019-05-24] MEDS: Famotidine 20 MG TAB PO SCH ×2 (11:07→20:11)
[2019-05-24] MEDS: Oxymetazoline HCl 0.05% (30 ML BOT) NS SCH ×3 (11:07→20:19)
--- NOTE | 2019-05-24 11:58 | PRG ---
DATE OF SERVICE: 05/24/2019 SUBJECTIVE: The patient states he is feeling fine. He wishes to go home. He is not having any significant pain. His highest temperature last night was 100.1 and is currently 99.3. OBJECTIVE: VITAL SIGNS: Temperature 99.3, pulse 94, respirations 16, blood pressure 118/68, and saturation 94% on room air. GENERAL: No apparent distress. Communicative and alert. CARDIOVASCULAR: Regular rate and rhythm. ABDOMEN: Soft, nontender, and nondistended. Positive bowel sounds. EXTREMITIES: No clubbing, cyanosis, or edema. LABORATORY DATA: Full set of labs are in the [facility] system, which I have reviewed. Of note, the patient's white count is 10.2 with hemoglobin of 11.6. Creatinine is 1.05. Urine culture at 24 hours is currently not growing anything. ASSESSMENT AND PLAN: A 39-year-old white male with urosepsis after ureteroscopy with high fevers without significant elevation in white count. The patient seems to be improving clinically and his fevers are defervescing. If the patient's final cultures come back negative, I would consider switching to a different antibiotic as the patient had infections despite taking Cipro. Bactrim has relatively high resistance rate, but is a potential option. An oral cephalosporin such as Omnicef or Vantin or Suprax would also be very good options, although the latter two are fairly expensive. For the time being, again, there does not appear to be any type of surgical intervention necessary. The patient's ultrasound yesterday did not demonstrate any hydronephrosis. We would continue medical therapy as planned. Once the patient is afebrile and is transitioned to oral antibiotics without any fevers, I think the patient can be discharged home. It may be feasible to switch him to oral antibiotics now if desired. Job ID: [id number]
--- NOTE | 2019-05-24 13:23 | PDOC.HOSPP ---
- Subjective Encounter Date: 05/24/19 Encounter Time: 11:45 Subjective: Patient accompanied by his mother today. Reports that he is feeling better. No lower back pain but right shoulder pain from lying down. No lightheadedness, fever, chills. No N/V/D/C. No urinary symptoms. No CP, SOB. - Objective Vital Signs & Weight: Vital Signs (12 hours) Temp Pulse Resp BP Pulse Ox 05/24/19 11:40 99.5 F 94 18 124/73 96 05/24/19 08:25 99.3 F 94 16 118/68 94 L 05/24/19 03:31 99.5 F 119 H 16 126/69 93 L Weight Weight 285 lb 4.8 oz Most Recent Monitor Data Heart Rate from ECG 114 NIBP 120/66 NIBP BP-Mean 84 Respiration from ECG 17 SpO2 96 I&O: 05/23/19 05/24/19 05/25/19 06:59 06:59 06:59 Intake Total 745.8 3899 Output Total 800 1925 Balance -54.2 1974 Result Diagrams: 05/24/19 04:47 05/24/19 04:47 Hospitalist ROS - Medication Medications: Active Medications Generic Name Dose Route Start Last Admin Trade Name Freq PRN Reason Stop Dose Admin Acetaminophen 1,000 mg 05/23/19 00:52 05/23/19 12:21 Tylenol PO 1,000 mg Q6H PRN Administration Mild Pain (1-3) Famotidine 20 mg 05/23/19 09:00 05/24/19 11:07 Pepcid PO 20 mg BID ZAMZAM Administration Ceftriaxone Sodium 2 gm/ 100 mls @ 200 mls/hr 05/23/19 09:00 05/24/19 11:07 Sodium Chloride IVPB 100 mls Q24HR ZAMZAM Administration Potassium Chloride/Sodium Chloride 1,000 ml in 1,000 mls @ 125 mls/hr 08:45 05/24/19 09:01 Ns 0.9% W/ 20 Meq Kcl IV Not Given .Q8H ZAMZAM Vancomycin HCl 1.75 gm/ Sodium 500 mls @ 250 mls/hr 05/24/19 08:00 05/24/19 08:57 Chloride IVPB 500 mls 0800,1600,2359 ZAMZAM Administration Ketorolac Tromethamine 30 mg 05/23/19 06:00 05/24/19 11:10 Toradol IVP 05/28/19 00:01 30 mg Q6HR ZAMZAM Administration Ondansetron HCl 4 mg 05/23/19 00:52 05/23/19 03:24 Zofran IVP 4 mg Q6H PRN Administration Nausea/Vomiting Oxymetazoline HCl 0 ml 05/23/19 15:00 05/24/19 11:07 Nasal Decongestant NS Not Given TID ZAMZAM Sodium Chloride 10 ml 05/23/19 09:00 05/24/19 11:08 Flush - Normal Saline IVF 10 ml Q12HR ZAMZAM Administration - Exam General Appearance: NAD, awake alert (sitting in the recliner) Neck: supple, symmetric, no thyromegaly Heart: no murmur, normal peripheral pulses Heart - other findings: tachycardia present Respiratory: CTAB, no wheezes, no rales, normal chest expansion Gastrointestinal: soft, non-tender, non-distended, normal bowel sounds Extremities: no cyanosis, no clubbing, no edema Hosp A/P (1) Sepsis Code(s): A41.9 - SEPSIS, UNSPECIFIED ORGANISM Status: Acute Qualifiers: Sepsis type: sepsis due to unspecified organism Sepsis acute organ dysfunction status: with acute organ dysfunction Severe sepsis acute organ dysfunction type: unspecified Severe sepsis shock status: with septic shock Qualified Code(s): A41.9 - Sepsis, unspecified organism; R65.21 - Severe sepsis with septic shock (2) UTI (urinary tract infection) Status: Acute Qualifiers: Urinary tract infection type: site unspecified Hematuria presence: without hematuria Qualified Code(s): N39.0 - Urinary tract infection, site not specified - Plan plan discussed w/ family, DVT proph w/lovenox Hosp A/P (1) Sepsis With septic shock on admission Likely pyelonephritis Continue IV abx Urology & Scrap Dealer on board US kidneys without any obstructive uropathy Continue IV fluids Urine cultures and blood cultures obtained Will F/U C/S and adjust abx accordingly Likely needs 2 weeks of abx therapy (2) UTI (urinary tract infection) Likely pyelonephritis
--- NOTE | 2019-05-24 13:51 | PRG ---
DATE OF SERVICE: 05/24/2019 SUBJECTIVE: The patient is feeling better, had no acute complaints. OBJECTIVE: VITAL SIGNS: Temperature 99.5, pulse 94, respirations 18, O2 saturation 96% on room air, blood pressure 124/73. HEENT: Unremarkable. NECK: No adenopathy or JVD. CHEST: Clear. CARDIAC: S1, S2. Regular. ABDOMEN: Soft. EXTREMITIES: No edema. LABORATORY DATA: White blood cell count 10.2, hematocrit 33.7, platelet count 161. Sodium 133, potassium 3.5, BUN 11, creatinine 1.1, glucose 116. ASSESSMENT: 1. Urosepsis. 2. Nephrolithiasis. PLAN: He will continue the antibiotics. He has no further critical care concerns. Pulmonary will sign off. Please recall if further assistance needed. Job ID: [id number]
[2019-05-24] MEDS: Ondansetron PF 4 MG/2 ML Vial IVP PRN (16:13)
[2019-05-24] MEDS: Acetaminophen 500 MG TAB PO PRN (16:14)
[2019-05-24] MEDS ORDERED: Acetaminophen 1,000 MG in Premix Bag 1 BAG IVPB SCH (18:45)
[2019-05-24] MEDS: Enoxaparin Sodium 40 MG/0.4 ML SYRINGE SC SCH (20:11)
[2019-05-24 23:12] LABS: Vancomycin, Trough 19.4 ug/mL
[2019-05-25] MEDS: Vancomycin 1.5 GRAM/300 ML BAG 1.5 GM in Premix Bag 1 BAG IVPB SCH ×3 (00:21→16:08)
[2019-05-25 05:12] LABS: #Basophils 0.1 thou/uL (0.0-0.2); #Eosinphils 0.3 thou/uL (0.0-0.7); #Lymphocytes 1.3 thou/uL (1.20-3.40); #Monocytes 0.8 thou/uL (0.11-0.59); #Neutrophils 7.6 thou/uL (1.40-6.50); %Basophils 0.6 % (0.0-1.0); %Eosinophils 2.9 % (0.0-10.0); %Lymphocytes 13.2 % (21.0-51.0); %Monocytes 8.2 % (0.0-10.0); Hemoglobin 11.4 g/dL (14.0-18.0); Mean Corpuscular HGB CONC 33.8 g/dL (32.0-36.0); Mean Corpuscular Hemoglobin 27.2 pg (27.0-31.0); Mean Corpuscular Volume 80.5 fL (78.0-98.0); Mean Platelet Volume 7.8 fL (7.4-10.4); Platelet Count 179 thou/uL (130-400); RBC Distribution Width 13.7 % (11.5-14.5); Red Blood Cell (RBC) Count 4.19 mill/uL (4.70-6.10); White Blood Cell (WBC) Count 10.1 thou/uL (4.8-10.8)
[2019-05-25 05:35] LABS: ALT (SGPT) 31 U/L (8-55); AST (SGOT) 24 U/L (5-34); Albumin 3.2 g/dL (3.5-5.0); Alkaline Phosphatase 72 U/L (40-110); Anion Gap 9 mmol/L (10-20); BUN (Urea Nitrogen) 10 mg/dL (8.9-20.6); Bilirubin, Total 1.2 mg/dL (0.2-1.2); Calc. Creatinine Clearance 180 mL/min (70-130); Calcium 8.7 mg/dL (7.8-10.44); Carbon Dioxide 22 mmol/L (22-29); Chloride 108 mmol/L (98-107); Estimated GFR-MDRD 81; Globulin 3.1 g/dL (2.4-3.5); Glucose 129 mg/dL (70-105); Potassium 3.4 mmol/L (3.5-5.1); Protein, Total 6.3 g/dL (6.0-8.3); Sodium 136 mmol/L (136-145)
[2019-05-25] MEDS: NS 0.9% w/ 20 MEQ KCL 1,000 ML/1,000 ML BAG IV SCH ×3 (06:15→17:35)
[2019-05-25] MEDS: Famotidine 20 MG TAB PO SCH ×2 (08:28→20:13)
[2019-05-25] MEDS: Oxymetazoline HCl 0.05% (30 ML BOT) NS SCH (08:33)
[2019-05-25] MEDS ORDERED: Potassium Chloride 20 MEQ TAB PO SCH (09:00)
[2019-05-25] MEDS: cefTRIAXone\\ROCEPHIN 2 GM in Sodium Chloride 0.9% 100 ML IVPB SCH (09:49)
[2019-05-25] MEDS: Cepastat Lozenges 1 LOZ PO PRN (10:31)
--- NOTE | 2019-05-25 11:16 | PDOC.HOSPP ---
- Subjective Encounter Date: 05/25/19 Encounter Time: 10:50 Subjective: Pt. c/o sore throat and requesting for meds for the same. Had fevers yesterday all day. Denies any back pain or urinary symptoms today. No CP, SOB. - Objective Vital Signs & Weight: Vital Signs (12 hours) Temp Pulse Resp BP Pulse Ox 05/25/19 07:30 99.8 F H 96 14 109/61 96 05/25/19 04:00 97.8 F 100 21 H 132/83 92 L Weight Weight 280 lb 11.2 oz Most Recent Monitor Data Heart Rate from ECG 114 NIBP 120/66 NIBP BP-Mean 84 Respiration from ECG 17 SpO2 96 I&O: 05/24/19 05/25/19 05/26/19 06:59 06:59 06:59 Intake Total 3899 2637.5 Output Total 1925 4750 Balance 1973 -2111.5 Result Diagrams: 05/25/19 04:46 05/25/19 04:46 Hospitalist ROS - Medication Medications: Active Medications Generic Name Dose Route Start Last Admin Trade Name Freq PRN Reason Stop Dose Admin Acetaminophen 1,000 mg 05/23/19 00:52 05/24/19 16:14 Tylenol PO 1,000 mg Q6H PRN Administration Mild Pain (1-3) Enoxaparin Sodium 40 mg 05/24/19 21:00 05/24/19 20:11 Lovenox SC 40 mg 2100 ZAMZAM Administration Famotidine 20 mg 05/23/19 09:00 05/25/19 08:28 Pepcid PO 20 mg BID ZAMZAM Administration Potassium Chloride/Sodium Chloride 1,000 ml in 1,000 mls @ 125 mls/hr 08:45 05/25/19 07:08 Ns 0.9% W/ 20 Meq Kcl IV Not Given .Q8H ZAMZAM Ceftriaxone Sodium 2 gm/ 100 mls @ 200 mls/hr 05/25/19 10:00 05/25/19 09:49 Sodium Chloride IVPB 100 mls 1000 ZAMZAM Administration Vancomycin HCl 1.5 gm/ Device 300 mls @ 150 mls/hr 05/24/19 23:59 05/25/19 08 :28 IVPB 300 mls 0800,1600,2359 ZAMZAM Administration Ondansetron HCl 4 mg 05/23/19 00:52 05/24/19 16:13 Zofran IVP 4 mg Q6H PRN Administration Nausea/Vomiting Sodium Chloride 10 ml 05/23/19 09:00 05/25/19 08:40 Flush - Normal Saline IVF 10 ml Q12HR ZAMZAM Administration Throat Lozenges 1 gabriel 05/25/19 09:41 05/25/19 10:31 Cepastat Lozenges PO 1 gabriel Q2H PRN Administration Sore Throat - Exam General Appearance: NAD, awake alert Eye: PERRL, anicteric sclera ENT: normocephalic atraumatic, no oropharyngeal lesions, moist mucosa Neck: supple, symmetric, no JVD, no thyromegaly, no lymphadenopathy, no carotid bruit Heart: RRR, no murmur, no gallops, no rubs, normal peripheral pulses Respiratory: CTAB, no wheezes, no rales, no ronchi, normal chest expansion, no tachypnea, normal percussion Gastrointestinal: soft, non-tender, non-distended, normal bowel sounds, no palpable masses, no hepatomegaly, no splenomegaly, no bruit Hosp A/P (1) Sepsis Code(s): A41.9 - SEPSIS, UNSPECIFIED ORGANISM Status: Acute Qualifiers: Sepsis type: sepsis due to unspecified organism Sepsis acute organ dysfunction status: with acute organ dysfunction Severe sepsis acute organ dysfunction type: unspecified Severe sepsis shock status: with septic shock Qualified Code(s): A41.9 - Sepsis, unspecified organism; R65.21 - Severe sepsis with septic shock (2) UTI (urinary tract infection) Status: Acute Qualifiers: Urinary tract infection type: site unspecified Hematuria presence: without hematuria Qualified Code(s): N39.0 - Urinary tract infection, site not specified - Plan Hosp A/P (1) Sepsis With septic shock on admission Likely pyelonephritis Continue IV abx and follow urine and blood cultures Adjust abx as per culture data U[facility] Fisher on board kidneys without any obstructive uropathy Continue IV fluids Abx duration to depend on clinical progress and culture results (2) UTI (urinary tract infection) Likely pyelonephritis
[2019-05-25] MEDS: Enoxaparin Sodium 40 MG/0.4 ML SYRINGE SC SCH (20:13)
[2019-05-25 23:28] LABS: Vancomycin, Trough 21.1 ug/mL
[2019-05-26 04:22] LABS: #Basophils 0.1 thou/uL (0.0-0.2); #Eosinphils 0.8 thou/uL (0.0-0.7); #Lymphocytes 1.9 thou/uL (1.20-3.40); #Neutrophils 4.8 thou/uL (1.40-6.50); %Eosinophils 9.5 % (0.0-10.0); %Lymphocytes 22.5 % (21.0-51.0); %Monocytes 11.7 % (0.0-10.0); %Neutrophils 55.4 % (42.0-75.0); Mean Corpuscular HGB CONC 33.9 g/dL (32.0-36.0); Mean Corpuscular Hemoglobin 27.4 pg (27.0-31.0); Mean Corpuscular Volume 80.8 fL (78.0-98.0); Mean Platelet Volume 7.3 fL (7.4-10.4); Platelet Count 219 thou/uL (130-400); RBC Distribution Width 13.6 % (11.5-14.5); Red Blood Cell (RBC) Count 4.39 mill/uL (4.70-6.10); White Blood Cell (WBC) Count 8.6 thou/uL (4.8-10.8)
[2019-05-26 04:43] LABS: Anion Gap 11 mmol/L (10-20); BUN (Urea Nitrogen) 10 mg/dL (8.9-20.6); Calc. Creatinine Clearance 192 mL/min (70-130); Calcium 8.9 mg/dL (7.8-10.44); Carbon Dioxide 22 mmol/L (22-29); Chloride 109 mmol/L (98-107); Estimated GFR-MDRD 89; Glucose 93 mg/dL (70-105); Potassium 3.6 mmol/L (3.5-5.1); Sodium 138 mmol/L (136-145)
[2019-05-26 07:33] VITALS: TEMP 98.8
[2019-05-26] MEDS: Famotidine 20 MG TAB PO SCH (08:12)
[2019-05-26] MEDS: Vancomycin HCl 1.25 GM in Sodium Chloride 0.9% 250 ML 250 ML IVPB SCH ×2 (08:17)
[2019-05-26] MEDS: NS 0.9% w/ 20 MEQ KCL 1,000 ML/1,000 ML BAG IV SCH ×2 (08:52)
[2019-05-26] MEDS: cefTRIAXone\\ROCEPHIN 2 GM in Sodium Chloride 0.9% 100 ML IVPB SCH (09:17)
[2019-05-26 12:16] VITALS: BP 118/73
[2019-05-26] MEDS: Cepastat Lozenges 1 LOZ PO PRN (12:20)
--- NOTE | 2019-05-26 20:40 | DIS ---
DATE OF ADMISSION: 05/23/2019 DATE OF DISCHARGE: 05/26/2019 DISCHARGE DIAGNOSES: 1. Severe sepsis secondary to urinary tract infection with septic shock, resolved. 2. Left ureterolithiasis, status post laser lithotripsy. 3. Acute metabolic encephalopathy secondary to #1, resolved. 4. Tobacco abuse. CONSULTATIONS: 1. Dr. Carrasquillo with Urology Service. 2. Dr. Bravo and Dr. Bruce with Pulmonology Critical Care Service. PERTINENT LABORATORY AND X-RAY FINDINGS: Creatinine ranged between 0.95 to 1.15. Estimated GFR ranged between 72 to 89. CBC showed a white blood cell count ranging between 8.6 to 13.2, hemoglobin ranged between 11.4 to 13.2. Urine drug screen dated 05/23/2019, negative. Urine culture dated 05/23/2019, showed no growth at 48 hours. Blood cultures x2 dated 05/24/2019, showed no growth to date. Portable chest x-ray dated 05/22/2019, showed mild pulmonary vascular prominence and cardiomegaly. Bilateral renal ultrasound dated 05/23/2019, showed no evidence for hydronephrosis. CT of the abdomen and pelvis dated 05/22/2019, showed left ureteral stent in appropriate positioning, left perinephric inflammatory changes noted, left-sided periureteral inflammatory changes noted. Interval removal of left-sided percutaneous nephrostomy tube. HOSPITAL COURSE: The patient was admitted initially to the Critical Care Unit after presenting with severe sepsis in the context of known left ureterolithiasis status post laser lithotripsy, status post left ureteral stent placement. The patient was initially placed on aggressive sepsis protocol including IV fluid hydration. Due to the patient's septic shock, the patient was placed on vasopressor support with Levophed and continued on vancomycin and Rocephin. Blood and urine cultures were unrevealing as to exact pathologic organism; however, the patient remained on antibiotic therapy through the hospital course. The patient has remained afebrile over the last 36 hours and overall clinically stabilized. The patient was evaluated by the Urology Service with recommendations to continue antibiotic coverage and general supportive management. The patient was ambulatory without assistance or difficulty and voiding appropriately. I have examined the patient the time of discharge and discussed followup instructions. The patient verbalized understanding and in agreement, ready for discharge on 05/26/2019. DISCHARGE MEDICATIONS: 1. Ciprofloxacin 500 mg p.o. b.i.d. 2. Ibuprofen 600 mg p.o. t.i.d. p.r.n. 3. Ditropan 5 mg p.o. t.i.d. 4. Tamsulosin 0.4 mg p.o. daily. 5. Tramadol 50 mg p.o. q.6 hours p.r.n. 6. Chantix 1 mg p.o. daily. FOLLOWUP: The patient will follow up with Dr. Janett Tavera within 7 days of discharge. The patient will follow up with Dr. Xiong with Urology Service at [facility] and to call his office for appointment time and date. CONDITION ON DISCHARGE: Stable. ACTIVITY: Ad-shankar. DIET: Regular. CODE STATUS: Full. DISPOSITION: Home on 05/26/2019. TIME SPENT WITH PATIENT: Total time preparing and coordinating discharge, 32 minutes. Job ID: [id number]
--- NOTE | 2019-05-28 00:39 | PQF ---
SHAUNNA ORLANDO CHARLES DO [id number] CLINICAL DOCUMENTATION CLARIFICATION FORM: POST DISCHARGE Addendum to original discharge summary date: ____ Late entry note date: __ DATE: 05/28/19 ATTN:Swapnil Vega Please exercise your independent, professional judgment in responding to the clarification form. Clinical indicators are provided on the bottom of this form for your review. Based on your clinical judgment, can you please specify the known or suspected condition being treated, evaluated or monitored? Please check appropriate box(s): [ x ] Sepsis as a complication of recent stent placement and nephrostomy [ ] Sepsis not a complication of recent stent placement and nephrostomy [ ] Other diagnosis [ ] Unable to determine CLINICAL INDICATORS - SIGNS / SYMPTOMS / LABS DS 05/26 "severe sepsis secondary to UTI with septic shock" DS 05/26 "left ureterolithiasis s/p laser lithotripsy" DS 05/26 "Acute metabolic encephalopathy" ED Notes 05/23 "patient presents for evaluation of UTI" ED Notes 05/23 "EMS states patient had lithotripsy,stent placement and nephrostomy tube done yesterday" HP 05/23 "patient's history is significant for left sided ureterolithiasis,s/p laser lithotripsy with removal of left nephrostomy tube and placement of left ureteral stent on 05/21/19" HP 05/23 "patient also noted with hypotension" Consult 05/23 "stent appears to be working well as the patient does not have any hydronephrosis" Consult 05/23 "infection probably came about from prolonged nephrostomy tube which had resulted in heavy bacterial colonization" RISK FACTORS ED Notes 05/23-History of kidney stones ED Notes 05/23-Smoker HP 05/23-s/p nephrostomy tube HP 05/23-s/p laser lithotripsy with stent PN 05/23-Severe sepsis with shock PN 05/23-UTI TREATMENT: HP 05/23-IVF HP 05/23-CVC placement Collected 05/23-Renal ultrasound PN 05/23-Urine and blood culture SEP 03-Vancomycin 1.5gm IV SEP 03-Levophed 250ml IV SEP 03-Rocephin 2gm IV (This form is maintained as a part of the permanent medical record) 2014 [employer] All Rights Reserved [email or web address] [not provided] MTDD
== END 2019-05-26 15:19 | disposition home or self-care (01) | DRG 862 ==
LOC: ERS 21:32 → CCU 05-23 00:30 → 2NO 05-23 23:48
PROVIDERS: ADMIT Family Medicine; ATTEND Family Medicine
PROC: 3E033XZ Introduction of Vasopressor into Peripheral Vein, Percutaneous Approach (ICD-10-PCS; 2019-05-22)
PROC: 02H633Z Insertion of Infusion Device into Right Atrium, Percutaneous Approach (ICD-10-PCS; principal; 2019-05-23)
DX: T81.44XA Sepsis following a procedure, initial encounter (principal); A41.9 Sepsis, unspecified organism; R65.21 Severe sepsis with septic shock; G93.41 Metabolic encephalopathy; N39.0 Urinary tract infection, site not specified; T83.512A Infection and inflammatory reaction due to nephrostomy catheter, initial encounter; F17.210 Nicotine dependence, cigarettes, uncomplicated; Z62.810 Personal history of physical and sexual abuse in childhood; G89.29 Other chronic pain; Z90.49 Acquired absence of other specified parts of digestive tract; Z88.8 Allergy status to other drugs, medicaments and biological substances; Z79.899 Other long term (current) drug therapy; Z87.442 Personal history of urinary calculi; Z93.6 Other artificial openings of urinary tract status; Z79.891 Long term (current) use of opiate analgesic; Y83.8 Other surgical procedures as the cause of abnormal reaction of the patient, or of later complication, without mention of misadventure at the time of the procedure
CPT/HCPCS: 36415; 36556; 71045; 76770; 80048; 80053; 80202; 80306; 83605; 85007; 85025; 85027; 87040; 87086; 96361; 96365; 96368; 96374; J0131; J0696; J1580; J1650; J1885; J2405; J3370; J3480; J3490; J7050

== ENCOUNTER 2020-01-08 14:20 | Outpatient (CLI) | payer OTHER ==
--- NOTE | 2020-01-08 15:59 | ULT ---
ULTRASOUND ABDOMEN COMPLETE: DATE: 01/08/2020 HISTORY: 39-year-old male with generalized abdominal pain FINDINGS: Study is limited by body habitus. Liver:Diffusely increased echogenicity suggestive of fatty liver. Slightly enlarged. Gallbladder:Surgically absent Common duct:4 mm. Spleen:No splenomegaly. Pancreas:Poorly visualized. Kidneys:No hydronephrosis Abdominal aorta:Not visualized Inferior vena cava:Very poorly visualized. Free fluid: None visualized. IMPRESSION: 1) hepatic steatosis. 2) status post cholecystectomy
== END 2020-01-08 14:21 | disposition home or self-care (01) ==
LOC: SCSULT 14:20
PROVIDERS: ATTEND Family Medicine
DX: R10.9 Unspecified abdominal pain (principal); K76.0 Fatty (change of) liver, not elsewhere classified; Z90.49 Acquired absence of other specified parts of digestive tract
CPT/HCPCS: 93975

== ENCOUNTER 2020-01-21 07:51 | Emergency (ER) | payer OTHER ==
[2020-01-21 09:03] LABS: #Basophils 0.1 thou/uL (0.0-0.2); #Eosinphils 0.7 thou/uL (0.0-0.7); #Lymphocytes 1.5 thou/uL (1.20-3.40); #Monocytes 1.4 thou/uL (0.11-0.59); #Neutrophils 9.2 thou/uL (1.40-6.50); %Basophils 0.7 % (0.0-1.0); %Eosinophils 5.4 % (0.0-10.0); %Lymphocytes 11.9 % (21.0-51.0); %Monocytes 10.8 % (0.0-10.0); %Neutrophils 71.1 % (42.0-75.0); Mean Corpuscular HGB CONC 32.8 g/dL (32.0-36.0); Mean Corpuscular Hemoglobin 27.2 pg (27.0-31.0); Mean Corpuscular Volume 82.9 fL (78.0-98.0); Mean Platelet Volume 7.5 fL (7.4-10.4); Platelet Count 225 thou/uL (130-400); RBC Distribution Width 13.4 % (11.5-14.5); Red Blood Cell (RBC) Count 5.87 mill/uL (4.70-6.10); White Blood Cell (WBC) Count 12.9 thou/uL (4.8-10.8)
[2020-01-21 09:26] LABS: ALT (SGPT) 33 U/L (8-55); AST (SGOT) 18 U/L (5-34); Albumin 3.9 g/dL (3.5-5.0); Alkaline Phosphatase 66 U/L (40-110); Anion Gap 11 mmol/L (10-20); BUN (Urea Nitrogen) 13 mg/dL (8.9-20.6); Bilirubin, Total 0.5 mg/dL (0.2-1.2); Calc. Creatinine Clearance 0 mL/min (70-130); Calcium 8.9 mg/dL (7.8-10.44); Carbon Dioxide 22 mmol/L (22-29); Chloride 109 mmol/L (98-107); Estimated GFR-MDRD 85; Globulin 2.8 g/dL (2.4-3.5); Glucose 113 mg/dL (70-105); Lipase 34 U/L (8-78); Protein, Total 6.7 g/dL (6.0-8.3); Sodium 138 mmol/L (136-145)
== END 2020-01-21 10:53 | disposition home or self-care (01) ==
LOC: ERS 07:51
DX: R11.2 Nausea with vomiting, unspecified (principal); R19.7 Diarrhea, unspecified; F32.9 Major depressive disorder, single episode, unspecified; F17.210 Nicotine dependence, cigarettes, uncomplicated
CPT/HCPCS: 36415; 80053; 83690; 85025; 96360